=== PATIENT | female | born 1980 | race Two or more races ===

== ENCOUNTER 2016-10-03 15:48 | Emergency (ER) | payer SELFPAY ==
--- NOTE | 2016-10-03 16:39 | ER Document Report ---
ED Medical Screen (RME) - General Chief Complaint: Pelvic Problem Stated Complaint: ABDOMINAL PAIN Time seen by provider: 16:38 Mode of Arrival: Ambulatory Information source: Patient Notes: 36-year-old female presents to ED for pelvic cramping and states that she has something coming out of her vagina. She says she first noticed it last night with the cramping she reached out and tested it wouldn't partway back in but was very swollen. She got up to go to work this morning and she states she is cramping worse today and she feels that there is something like a Rd coming out of her vagina. She states she thinks she has a prolapsed uterus. Last menstrual period was 09/26/2016. Pain is a 3/5 cramping. I have greeted and performed a rapid initial assessment of this patient. A comprehensive ED assessment and evaluation of the patient, analysis of test results and completion of medical decision making process will be conducted by an additional ED providers. TRAVEL OUTSIDE OF THE [place] IN LAST 30 DAYS: No - Related Data Allergies/Adverse Reactions: No Known Allergies Allergy (Verified 10/03/16 16:35) Past Medical History Renal/ Medical History: Denies: Hx Peritoneal Dialysis Physical Exam - Vital signs Vitals: Temp Pulse Resp BP Pulse Ox 98.6 F 109 H 16 180/92 H 98 10/03/16 15:56 10/03/16 15:56 10/03/16 15:56 10/03/16 15:56 10/03/16 15:56 Course - Vital Signs Vital signs: Temp Pulse Resp BP Pulse Ox 98.6 F 109 H 16 180/92 H 98 10/03/16 15:56 10/03/16 15:56 10/03/16 15:56 10/03/16 15:56 10/03/16 15:56
[2016-10-03 16:56] LABS: AMORPHOUS SEDIMENT,URINE TRACE /HPF; APPEARANCE,URINE SLIGHTLY-CLOUDY; BILIRUBIN,URINE NEGATIVE (NEGATIVE); GLUCOSE, URINE NEGATIVE (NEGATIVE); KETONES,URINE NEGATIVE (NEGATIVE); LEUKOCYTE ESTERASE,URINE NEGATIVE (NEGATIVE); NITRITE,URINE NEGATIVE (NEGATIVE); PROTEIN,URINE NEGATIVE (NEGATIVE); URINE SPECIFIC GRAVITY 1.002; UROBILINOGEN,URINE NEGATIVE mg/dL (<2.0)
[2016-10-03 17:19] LABS: ALANINE AMINOTRANSFERASE 36 U/L (9-52); ALBUMIN 4.8 g/dL (3.5-5.0); ALKALINE PHOSPHATASE 80 U/L (38-126); ANION GAP 12 (5-19); ASPARTATE AMINO TRANSFERASE 21 U/L (14-36); BILIRUBIN,DIRECT 0.3 mg/dL (0.0-0.4); BILIRUBIN,TOTAL 0.4 mg/dL (0.2-1.3); BLOOD UREA NITROGEN 10 mg/dL (7-20); CALCIUM 10.6 mg/dL (8.4-10.2); CARBON DIOXIDE 23 mmol/L (22-30); CHLORIDE 108 mmol/L (98-107); CREATININE RESULT 0.63 mg/dL (0.52-1.25); GLUCOSE 107 mg/dL (75-110); POTASSIUM 4.1 mmol/L (3.6-5.0); SODIUM 143.3 mmol/L (137-145)
--- NOTE | 2016-10-03 19:10 | ER Document Report ---
ED GI/ - General Chief Complaint: Pelvic Problem Stated Complaint: ABDOMINAL PAIN Time seen by provider: 19:00 Mode of Arrival: Ambulatory Information source: Patient Notes: 36-year-old female presents to ED for pelvic cramping states she has something this bulging out of her vagina. She states that she noticed this last night and with the cramping so she reached up to her vagina and touched it and it went back in. She states it came out again today and she feels like something is prolapsed out of her vagina now. She states she got up went to work this morning and the cramping was worse and while she was at work she felt like something was falling out of her project vagina again. She states that she thinks she might have a prolapsed ureter is cut she looked it up online. Her last menstrual period was 09/26/2016 TRAVEL OUTSIDE OF THE [place] IN LAST 30 DAYS: No - HPI Patient complains to provider of: Pelvic pain, Vaginal pain Onset: Yesterday Timing/Duration: Intermittent Quality of pain: Cramping Severity at maximum: Moderate Pain Level: 2 Location: Pelvis, Vaginal Vaginal bleeding (Compared to normal period): None LMP: 09/26/2016 Associated symptoms: Other - Pelvic pain and vaginal pressure Exacerbated by: Denies Relieved by: Denies Similar symptoms previously: No Recently seen / treated by doctor: No - Related Data Allergies/Adverse Reactions: No Known Allergies Allergy (Verified 10/03/16 19:07) Past Medical History - General Information source: Patient - Social History Smoking Status: Current Every Day Smoker Cigarette use (# per day): Yes - pack per day Chew tobacco use (# tins/day): No Smoking Education Provided: Yes - less than 2 minutes Frequency of alcohol use: None Drug Abuse: None Occupation: financial planning consultant Lives with: Spouse/Significant other Family History: Hyperlipidemia, Hypertension, Malignancy Patient has suicidal ideation: No Patient has homicidal ideation: No - Past Medical History Cardiac Medical History: Reports: None Pulmonary Medical History: Reports: None EENT Medical History: Reports: None Neurological Medical History: Reports: None Endocrine Medical History: Reports: None Renal/ Medical History: Reports: None Malignancy Medical History: Reports: None GI Medical History: Reports: None Musculoskeltal Medical History: Reports Hx Musculoskeletal Trauma - Sprained ankle Skin Medical History: Reports None Psychiatric Medical History: Reports: None Traumatic Medical History: Reports: None Infectious Medical History: Reports: None Past Surgical History: Reports: Hx Adenoidectomy, Hx Oral Surgery - [place] teeth , Hx Tonsillectomy Review of Systems - Review of Systems Constitutional: No symptoms reported EENT: No symptoms reported Cardiovascular: No symptoms reported Respiratory: No symptoms reported Gastrointestinal: No symptoms reported Genitourinary: No symptoms reported Female Genitourinary: Other - Pelvic pain and vaginal pain and feels like something is falling out of her vagina Musculoskeletal: No symptoms reported Skin: No symptoms reported Hematologic/Lymphatic: No symptoms reported Neurological/Psychological: No symptoms reported -: Yes All other systems reviewed and negative Physical Exam - Vital signs Vitals: Temp Pulse Resp BP Pulse Ox 98.6 F 109 H 16 180/92 H 98 10/03/16 15:56 10/03/16 15:56 10/03/16 15:56 10/03/16 15:56 10/03/16 15:56 Interpretation: Normal - General General appearance: Appears well, Alert - HEENT Head: Normocephalic, Atraumatic Eyes: Normal Pupils: PERRL - Respiratory Respiratory status: No respiratory distress Chest status: Nontender Breath sounds: Normal Chest palpation: Normal - Cardiovascular Rhythm: Regular Heart sounds: Normal auscultation Murmur: No - Abdominal Inspection: Normal Distension: No distension Bowel sounds: Normal Tenderness: Nontender. No: Tender Organomegaly: No organomegaly - Genitourinary External exam: Normal Speculum exam: Normal Vaginal bleeding: None Bimanuel exam: Normal - Back Back: Normal, Nontender - Extremities General upper extremity: Normal inspection, Nontender, Normal color, Normal ROM , Normal temperature General lower extremity: Normal inspection, Nontender, Normal color, Normal ROM , Normal temperature, Normal weight bearing. No: Jayant's sign - Neurological Neuro grossly intact: Yes Cognition: Normal Orientation: AAOx4 Emmanuel Coma Scale Eye Opening: Spontaneous Emmanuel Coma Scale Verbal: Oriented [place] Coma Scale Motor: Obeys Commands Emmanuel Coma Scale Total: 15 Speech: Normal Motor strength normal: LUE, RUE, LLE, RLE Sensory: Normal - Psychological Associated symptoms: Normal affect, Normal mood - Skin Skin Temperature: Warm Skin Moisture: Dry Skin Color: Normal Course - Re-evaluation Re-evalutation: 10/03/16 21:20 Discussed labs and ultrasound with patient written reports of labs and ultrasound given to patient patient encouraged to follow up with [employer] [employer] SERVICE ATTENDANT Thursday or Thursday and if she has these symptoms again have her significant other look in the area or even could take a picture of what she is seeing so that someone will be able to see what she is concerned about. - Vital Signs Vital signs: Temp Pulse Resp BP Pulse Ox 98.5 F 90 16 141/89 H 98 10/03/16 19:15 10/03/16 19:15 10/03/16 19:15 10/03/16 19:15 10/03/16 19:15 - Laboratory Result Diagrams: 10/03/16 16:49 Laboratory results interpreted by me: 10/03/16 16:49 Chloride 108 H Calcium 10.6 H - Diagnostic Test Radiology reviewed: Image reviewed, Reports reviewed Discharge - Discharge Clinical Impression: Pelvic cramping Condition: Stable Disposition: HOME, SELF-CARE Instructions: [employer] Collector Attendant Doctors Additional Instructions: PELVIC PAIN: There are many causes of pain in the pelvic area. The cause could be the tubes, ovaries, uterus, intestines, appendix, pelvic muscles and connective tissue, or the urinary tract. The cause of your pelvic pain is not clear. However, it seems safe to treat you outside the hospital. If the pain sounds like a temporary problem, we sometimes wait to see if it goes away. Other patients may need additional tests, such as pelvic ultrasound or cultures. Conditions may change. Call us or come back for reexamination if any problems occur, such as: (1) Pain that becomes more severe, steady, or becomes concentrated in one specific area. Also, pain that is more severe with movement or coughing. (2) Vomiting that persists or becomes more frequent. (3) Blood in the vomitus, urine, or bowel movements. Blood in the stool may have a tarry or black appearance. (4) Shaking chills or fever greater than 100 degrees. (5) The abdomen becomes more distended or swollen. (6) Bowel movements cease. (7) Heavy vaginal bleeding. You stated you came in for for something that was falling out of your vagina. Your lab work your ultrasound and your physical exam have all been negative. If you ever see anything or feel anything like this again please follow-up with [employer] SERVICE [employer]OD SERVICE ATTENDANT if you actually sees something outside of your vagina you could take a picture to take to your doctor said they will see what you are seeing. FOLLOW-UP CARE: If you have been referred to a physician for follow-up care, call the physician s office for an appointment as you were instructed or within the next two days. If you experience worsening or a significant change in your symptoms, notify the physician immediately or return to the Emergency Department at any time for re-evaluation. Forms: Elevated Blood Pressure, Smoking Cessation Education, Restricted Release , Return to Work
[2016-10-03 19:17] VITALS: BP 141/89
== END 2016-10-03 19:18 | disposition home or self-care (01) ==
LOC: ER 15:48
DX: R10.2 Pelvic and perineal pain (principal); F17.210 Nicotine dependence, cigarettes, uncomplicated
CPT/HCPCS: 36415; 76830; 80053; 81001; 84703; 99284